=== PATIENT | female | born 1945 | race Caucasian/White ===

== ENCOUNTER 2023-05-29 13:13 | Inpatient (IN) | payer OTHER ==
[~2023-05-29] VITALS: Ht 154.9 cm; Wt 49.9 kg
[2023-05-29 13:30] VITALS: BP_SYST 140; PULSE 75; RESP 18; TEMP 97; O2SAT 96
[2023-05-29 16:08] LABS: BASOPHILS # (AUTO) 0.1 K/uL (0.0-0.2); BASOPHILS % (AUTO) 0.7 % (0.0-2.0); EOSINOPHILS % (AUTO) 0.6 % (0.0-4.0); HEMATOCRIT 40.9 % (36-48); HEMOGLOBIN 14.1 g/dL (12.0-16.0); LYMPHOCYTES # (AUTO) 2.5 K/uL (1.0-5.5); LYMPHOCYTES % (AUTO) 32.6 % (20.5-51.5); MEAN CORPUSCULAR HEMOGLOBIN 31 pg (27-31); MEAN CORPUSCULAR HGB CONC 35 % (32-36); MEAN CORPUSCULAR VOLUME 91 fL (79.0-98.0); MONOCYTES # (AUTO) 0.4 K/uL (0.0-1.0); MONOCYTES % (AUTO) 4.7 % (1.7-9.3); NEUTROPHILS # (AUTO) 4.6 K/uL (1.8-7.7); NEUTROPHILS % (AUTO) 61.4 % (40.0-70.0); PLATELET COUNT (AUTO) 222 K/uL (130-430); RED CELL DISTRIBUTION WIDTH 13.2 % (9.0-15.0); WHITE BLOOD COUNT (AUTO) 7.6 K/uL (4.8-10.8)
[2023-05-29 16:26] LABS: ANION GAP 9 (5-15); CARBON DIOXIDE 27 mmol/L (23-29); CHLORIDE 104 mmol/L (98-107); GLUCOSE 109 mg/dL (74-106); SODIUM SERUM 140 mmol/L (136-145); UREA NITROGEN, BLOOD 18 mg/dL (8-21)
[2023-05-29 16:38] LABS: ALANINE AMINOTRANSFERASE 16 U/L (12-78); ALBUMIN 3.7 g/dL (3.4-4.8); ASPARTATE AMINOTRANSFERASE 16 U/L (10-37); BILIRUBIN,DIRECT 0.1 mg/dL (0.0-0.3); PHOSPHORUS 4.1 mg/dL (2.7-4.5); TOTAL BILIRUBIN 0.3 mg/dL (0.0-1.0); TOTAL PROTEIN, SERUM 7.8 g/dL (6.4-8.3)
[2023-05-29 18:00] LABS: BILIRUBIN,URINE NEGATIVE (NEGATIVE); CLARITY/URINE SL CLOUDY (CLEAR); COLOR,URINE YELLOW (YELLOW); GLUCOSE,URINE NEGATIVE (NEGATIVE); KETONES,URINE NEGATIVE (NEGATIVE); LEUKOCYTE ESTERASE ,URINE 1+ (NEGATIVE); NITRITE, URINE NEGATIVE (NEGATIVE); PROTEIN URINE TRACE (NEGATIVE); UROBILINOGEN,URINE 0.2 (0.2-1.0)
[2023-05-29 18:29] LABS: BLOOD, URINE TRACE (NEGATIVE)
[2023-05-29 18:30] LABS: BACTERIA,URINE MANY /HPF (None Seen); MUCUS,URINE 2+ /LPF (None Seen); URINE AMORPHOUS URATE 2+ /HPF (None Seen); WBC,URINE 50-80 /HPF (0-3)
[2023-05-29] MEDS ORDERED: LORazepam 2 MG/ML VIAL IVP PRN (19:15)
[2023-05-29] MEDS ORDERED: cefTRIAXone 1 GM VIAL ONE (20:05)
[2023-05-29] MEDS: cefTRIAXone 1 GM in D5W 50 ML IV ONE (20:08)
[2023-05-29] MEDS: NACL 0.9% 1,000 ML IV SCH (20:37)
[2023-05-29] MEDS ORDERED: ACETAMINOPHEN 325 MG TABLET PO PRN (21:15)
[2023-05-29] MEDS ORDERED: HYDROcodone/ACETAMIN 5-325 MG TAB (NORCO/ VICODIN) PO PRN (21:15)
[2023-05-29] MEDS ORDERED: ONDANSETRON HCL 4 MG/2 ML VIAL IVP PRN (21:15)
[2023-05-29 21:55] VITALS: BP_SYST 101; PULSE 76; RESP 20; TEMP 98.7
[2023-05-30] VITALS (7 sets, daily range): BP systolic 105–126; PULSE 70–85; RESP 16–20; TEMP 97.3–98.7; O2SAT 95–99
[2023-05-30 05:56] LABS: BASOPHILS % (AUTO) 0.5 % (0.0-2.0); EOSINOPHILS # (AUTO) 0.1 K/uL (0.0-0.4); EOSINOPHILS % (AUTO) 0.9 % (0.0-4.0); HEMATOCRIT 36.2 % (36-48); HEMOGLOBIN 12.4 g/dL (12.0-16.0); LYMPHOCYTES # (AUTO) 2.1 K/uL (1.0-5.5); LYMPHOCYTES % (AUTO) 32.1 % (20.5-51.5); MEAN CORPUSCULAR HEMOGLOBIN 31 pg (27-31); MEAN CORPUSCULAR HGB CONC 34 % (32-36); MEAN CORPUSCULAR VOLUME 90 fL (79.0-98.0); MONOCYTES # (AUTO) 0.4 K/uL (0.0-1.0); MONOCYTES % (AUTO) 5.8 % (1.7-9.3); NEUTROPHILS # (AUTO) 3.9 K/uL (1.8-7.7); NEUTROPHILS % (AUTO) 60.7 % (40.0-70.0); PLATELET COUNT (AUTO) 213 K/uL (130-430); RED BLOOD CELL COUNT(AUTO) 4.01 MIL/uL (4.2-6.2); RED CELL DISTRIBUTION WIDTH 13.1 % (9.0-15.0); WHITE BLOOD COUNT (AUTO) 6.5 K/uL (4.8-10.8)
[2023-05-30 06:45] LABS: ANION GAP 11 (5-15); CALCIUM 8.5 mg/dL (8.4-11.0); CARBON DIOXIDE 24 mmol/L (23-29); CHLORIDE 107 mmol/L (98-107); CREATININE 0.56 mg/dL (0.55-1.30); GLUCOSE 117 mg/dL (74-106); POTASSIUM 3.8 mmol/L (3.5-5.1); SODIUM SERUM 142 mmol/L (136-145); THYROID STIMULATING HORMONE 2.29 uIu/mL (0.34-4.82); UREA NITROGEN, BLOOD 14 mg/dL (8-21)
[2023-05-30] MEDS: LEVOTHYROXINE SODIUM 0.1 MG TABLET PO SCH (07:00)
[2023-05-30] MEDS: cefTRIAXone 1 GM in D5W 50 ML IV SCH (18:55)
[2023-05-30] MEDS: DOCUSATE SODIUM 100 MG CAPSULE PO SCH (23:03)
[2023-05-30] MEDS: HEPARIN SODIUM,PORCINE 5,000 UNITS/ML VIAL SUBCUT SCH (23:05)
[2023-05-31] VITALS: BP_SYST 124; PULSE 84; RESP 16; TEMP 97.2; O2SAT 96
[2023-05-31 08:00] VITALS: BP_SYST 140; PULSE 64; RESP 17; TEMP 99.1; O2SAT 96
[2023-05-31] MEDS: PANTOPRAZOLE SODIUM 40 MG TAB PO SCH (09:46)
[2023-05-31 10:00] VITALS: BP_SYST 140; TEMP 99.1
[2023-05-31 12:00] VITALS: BP_SYST 106; PULSE 69; RESP 18; TEMP 97.1; O2SAT 95
[2023-05-31 20:05] VITALS: BP_SYST 151; PULSE 108; RESP 16; TEMP 97; O2SAT 95
[2023-06-01] VITALS (7 sets, daily range): BP systolic 93–138; PULSE 70–93; RESP 12–16; TEMP 97–98.2; O2SAT 93–98
[2023-06-01 06:34] LABS: BASOPHILS % (AUTO) 0.4 % (0.0-2.0); EOSINOPHILS % (AUTO) 0.8 % (0.0-4.0); HEMATOCRIT 39.7 % (36-48); HEMOGLOBIN 13.7 g/dL (12.0-16.0); LYMPHOCYTES # (AUTO) 1.8 K/uL (1.0-5.5); LYMPHOCYTES % (AUTO) 35.6 % (20.5-51.5); MEAN CORPUSCULAR HEMOGLOBIN 31 pg (27-31); MEAN CORPUSCULAR HGB CONC 35 % (32-36); MEAN CORPUSCULAR VOLUME 90 fL (79.0-98.0); MONOCYTES # (AUTO) 0.3 K/uL (0.0-1.0); MONOCYTES % (AUTO) 5.5 % (1.7-9.3); NEUTROPHILS % (AUTO) 57.7 % (40.0-70.0); PLATELET COUNT (AUTO) 239 K/uL (130-430); RED CELL DISTRIBUTION WIDTH 13.1 % (9.0-15.0); WHITE BLOOD COUNT (AUTO) 5.2 K/uL (4.8-10.8)
[2023-06-01 07:14] LABS: ANION GAP 10 (5-15); CALCIUM 9.3 mg/dL (8.4-11.0); CARBON DIOXIDE 27 mmol/L (23-29); CHLORIDE 106 mmol/L (98-107); CREATININE 0.62 mg/dL (0.55-1.30); GLUCOSE 108 mg/dL (74-106); POTASSIUM 3.6 mmol/L (3.5-5.1); SODIUM SERUM 143 mmol/L (136-145); UREA NITROGEN, BLOOD 15 mg/dL (8-21)
[2023-06-01] MEDS ORDERED: PRO40 PO (11:20)
[2023-06-01] MEDS ORDERED: LEVO100T PO (11:20)
[2023-06-01] MEDS ORDERED: DOCU-144 PO (11:20)
[2023-06-01] MEDS ORDERED: CEPH250C PO (11:21)
== END 2023-06-01 22:30 | DRG 71 ==
LOC: SED 13:13 → SMU 19:07
PROVIDERS: ADMIT Internal Medicine; ATTEND Internal Medicine
DX: G93.41 Metabolic encephalopathy (principal); N39.0 Urinary tract infection, site not specified; B96.20 Unspecified Escherichia coli [E. coli] as the cause of diseases classified elsewhere; E03.9 Hypothyroidism, unspecified; F20.9 Schizophrenia, unspecified; F31.9 Bipolar disorder, unspecified
CPT/HCPCS: 36415; 70450-TC; 71045; 76376; 80048; 80076; 81000; 81001; 81015; 83735; 83880; 84100; 84443; 85025; 87040; 87081; 87086; 96361; 96365; 97110-GP; 97530-GP; 99285; J0696; J1644; J7060